=== PATIENT | female | born 2005 | race Caucasian/White ===

== ENCOUNTER 2024-03-31 12:31 | Emergency (ER) | payer BC, SELFPAY ==
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
[2024-03-31 12:46] VITALS: BP 120/70; PULSE 103; RESP 16; TEMP 36.7; O2SAT 99
== END 2024-03-31 13:02 | disposition short-term general hospital (02) ==
PROVIDERS: Emergency Provider Nurse Practitioner
DX: S09.93XA Unspecified injury of face, initial encounter (principal); W50.0XXA Accidental hit or strike by another person, initial encounter
CPT/HCPCS: 99203; G0463